=== PATIENT | female | born 1970 | race Hispanic/Latino ===

== ENCOUNTER 2018-12-06 16:07 | Emergency (ER) | payer OTHER | END 2018-12-06 16:49 | disposition home or self-care (01) | LOC: EDH 16:07 | DX: S63.591A Other specified sprain of right wrist, initial encounter (principal); Z98.51 Tubal ligation status; W18.39XA Other fall on same level, initial encounter; Y93.89 Activity, other specified; Y92.89 Other specified places as the place of occurrence of the external cause; Y99.8 Other external cause status | CPT/HCPCS: 29125; 73110 ==

== ENCOUNTER 2024-03-19 01:49 | Emergency (ER) | payer BC, OTHER ==
[~2024-03-19] VITALS: Ht 152.4 cm; Wt 76.2 kg
[2024-03-19 02:28] LABS: BASOPHILS # (AUTO) 0.01 K/uL (0.00-0.20); BASOPHILS % (AUTO) 0.2 % (0.0-5.0); EOSINOPHILS # (AUTO) 0.12 K/uL (0.00-0.70); LYMPHOCYTES # (AUTO) 2.1 K/uL (1.0-4.8); MEAN CORPUSCULAR HEMOGLOBIN 29.6 pg (27.0-33.0); MEAN CORPUSCULAR HGB CONC 34.1 g/dL (32.0-36.0); MEAN CORPUSCULAR VOLUME 86.7 fL (79-99); MONOCYTES # (AUTO) 0.4 K/uL (0.1-1.0); MONOCYTES % (AUTO) 6.4 % (3.0-13.0); NEUTROPHILS # (AUTO) 3.5 K/uL (1.8-7.7); NEUTROPHILS % (AUTO) 57.4 % (40.0-77.0); PLATELET COUNT (AUTO) 247 K/uL (130-400); RED CELL DISTRIBUTION WIDTH 12.1 % (11.0-15.5); WHITE BLOOD COUNT (AUTO) 6.1 K/uL (4.8-10.8)
[2024-03-19] MEDS: morPHINE 4 MG SYG IVP ONE (02:35)
[2024-03-19] MEDS: LACTATED RINGERS 1000ML 909 ML IV ONE (02:36)
[2024-03-19 02:37] LABS: CREATININE 0.9 mg/dL (0.5-1.0); POTASSIUM 3.5 mmol/L (3.5-5.1)
[2024-03-19 02:42] LABS: ALBUMIN 3.6 g/dL (3.5-5.0); BILIRUBIN,TOTAL 0.5 mg/dL (0.2-1.0); TOTAL PROTEIN, SERUM 7.7 g/dL (6.0-8.3)
[2024-03-19] MEDS ORDERED: IOHEXOL-350 75 ML VIAL IV ONE (03:16)
[2024-03-19] MEDS: CLINDAMYCIN 150 MG CAP PO ONE (04:46)
[2024-03-19] MEDS ORDERED: CLIN-141 PO (04:48)
[2024-03-19] MEDS ORDERED: HYDR-4060 PO (05:07)
[2024-03-19 05:09] VITALS: BP 139/85; PULSE 68; RESP 18; TEMP 97.8; O2SAT 97
== END 2024-03-19 05:33 | disposition home or self-care (01) ==
LOC: EDH 01:49
DX: K05.6 Periodontal disease, unspecified (principal); Z98.51 Tubal ligation status; Z98.890 Other specified postprocedural states
CPT/HCPCS: 99284; 96374; 70487; 96361; 80053; 85025; 36415; J7120; J2270; Q9967

== ENCOUNTER 2025-01-17 21:57 | Emergency (ER) | payer BC ==
[~2025-01-17] VITALS: Ht 154.9 cm; Wt 75.7 kg
[~2025-01-17 21:57] MED LIST: CLIN-141 PO; HYDR-4060 PO
--- NOTE | 2025-01-17 23:26 | HMCIMG ---
EXAMINATION: CT Maxillofacial Without IV contrast. CLINICAL HISTORY: Patient presents with jaw swelling and dental caries. COMPARISON: CT maxillofacial dated 03/19/2024. TECHNIQUE: Axial computed tomography images of the face without intravenous contrast. Sagittal and coronal reformatted images were generated. CONTRAST: None. FINDINGS: FACIAL BONES/ORBITS: No acute fracture or aggressive appearing osseous lesion. The mandible is intact. There is periapical osteolysis along the right mandibular molar tooth without bony cortical erosions. The orbits are normal. No retrobulbar hematoma or mass. The paranasal sinuses appear clear. SOFT TISSUES: Soft tissue thickening with subcutaneous fat stranding along the right hemimandible. No radiopaque foreign body or focal fluid collection. IMPRESSION: No acute facial bone fracture. Soft tissue thickening with subcutaneous fat stranding along the right hemimandible, reflecting inflammatory changes. Periapical osteolysis along the right mandibular molar tooth without bony cortical erosions. The present findings are more pronounced compared to the previous CT dated 03/19/2024. /[place]
--- NOTE | 2025-01-17 23:38 | ERN ---
ED Note History of Present Illness Stated Complaint: TOOTHACHE, FEVER Chief Complaint: Tooth Ache/Pain Time Seen by MD: 22:01 Dictation: This is a 54-year-old female who presented to the emergency room complaining of toothache and a low-grade fever which has been going on for awhile. Apparently she had dental caries in 2023 and she went to [place] and had the lower right molar tooth removed she comes in stating that she has pain in the right molars and jaw and chin. She took Tylenol at 4:00 p.m. before coming to the ER. No bleeding. Patient had also root canal treatment in the past and has had poor periodontal disease. She has been taking care of multiple sick family members and did not have the time for follow ups. Temperature 100 pulse 114 respirations 20 blood pressure 172/112 pulse oximetry 100% on room air Allergies: Coded Allergies: No Known Drug Allergies (Unverified Allergy, Unknown, 12/06/18) Home Meds Active Scripts Chlorhexidine Gluconate (Peridex Oral Rinse) 0.12 % Mwsh, 15 ML PO BID for 14 Days, #473 ML 0 Refills Swish and spit Prov:KARLO TAM MD 01/18/25 Prednisone (Prednisone) 20 Mg Tablet, 1 TAB PO AD for 6 Days, #14 TAB 0 Refills TAKE 1 TAB BY MOUTH THREE TIMES PER DAY X3 DAYS, THEN TAKE 1 TAB BY MOUTH TWICE A DAY X2 DAYS, THEN TAKE 1 TAB BY MOUTH ONCE A DAY X1 DAY. Prov:KARLO TAM MD 01/18/25 Clindamycin HCl (Clindamycin HCl) 300 Mg Capsule, 1 CAP PO QID for 10 Days, #40 CAP 0 Refills Prov:KARLO TAM MD 01/17/25 Hydrocodone/Acetaminophen (Hydrocodon-Acetaminophen 5-325) 5 Mg-325 Mg Tablet, 1 EACH PO q8 for pain for 3 Days, #9 TAB Prov:ROSLYN GOINS MD 03/19/24 Clindamycin HCl (Clindamycin HCl) 300 Mg Capsule, 150 MG PO TID for 7 Days, #21 CAP Prov:ROSLYN GOINS MD 03/19/24 Past Medical History Past Medical History: No Pertinent History, Diabetes-Type II Surgical History: Other, BTL Surgical History Other: HX OF TUBAL LIGATION Family History: Negative Social History: Negative History: Not Applicable RN Note Reviewed/Agreed w/PFSH: Yes Review of System Dictation Constitutional: Negative for fever,chills, and weight loss Eyes: Negative for injury, pain,redness, and discharge ENT: Negative for injury,pain or swelling positive for pain in the multiple areas of the teeth and gums, swelling of the j chin and jaw Cardiovascular: Negative for chest pain, palpitations, and edema Respiratory: Negative for shortness of breath, cough, and wheezing, Abdomen/GI: Negative for abdominal pain, nausea, vomiting, diarrhea, and constipation Back: Negative for injury and pain : Negative for injury, bleeding and discharge MS/Extremity: Negative for injury and deformity Skin: Negative for rash, and discoloration Neuro: denied weakness, numbness, tingling, and seizure Psych: Negative for suicide ideation, homicidal ideation, and hallucinations Initial Vital Sign VS Vital Signs Date Time Temp Pulse Resp B/P (MAP) Pulse Ox O2 Delivery O2 Flow Rate FiO2 01/17/25 21:59 100.0 114 20 172/112 100 Room Air 01/17/25 22:41 0 21 Physical Exam Dictation General: awake, alert, NAD overweight Head/Face: Normocephalic, atraumatic I did not appreciate any severe asymmetrical jaw swelling or chin swelling. Eyes: PERRL, EOMI, vision at baseline ENT: oral cavity clear, TMs clear, extremely poor dentition with multiple missing teeth dental caries and lower jaw right-sided molars have multiple cavities and severe gingivitis. She also has some tenderness in the left side upper jaw. I could not extrude any pus. Neck: Trachea midline, supple, no nuchal rigidity Cardiovascular: RRR, normal S1/S2, No MRGs, no JVD Respiratory: CTAB, no respiratory distress, No rales or wheezes Abdomen: Soft, non-tender, non-distended, normal bowel sounds, no guarding or rebound. Skin: Warm, dry, normal turgor, no rash MS/Extremity: Pulses equal, no cyanosis, neurovascular intact, FROM Neuro: COAx4, GCS 15, strength 5/5, CN 2-12 intact, normal cerebellar exam, norm al gait, Psych: Normal behavior, mood, and affect normal Extremities-trace edema without any palpable cords, Homans sign is negative Results (Laboratory/Radiology) Labs Reviewed?: Yes CT Scan Comment: REASON: dental caries jaw swelling ORDERING PHYSICIAN: KARLO TAM MD [facility]/O CONTRAST EXAMINATION: CT Maxillofacial Without IV contrast. CLINICAL HISTORY: Patient presents with jaw swelling and dental caries. COMPARISON: CT maxillofacial dated 03/19/2024. TECHNIQUE: Axial computed tomography images of the face without intravenous contrast. Sagittal and coronal reformatted images were generated. CONTRAST: None. FINDINGS: FACIAL BONES/ORBITS: No acute fracture or aggressive appearing osseous lesion. The mandible is intact. There is periapical osteolysis along the right mandibular molar tooth without bony cortical erosions. The orbits are normal. No retrobulbar hematoma or mass. The paranasal sinuses appear clear. SOFT TISSUES: Soft tissue thickening with subcutaneous fat stranding along the right hemimandible. No radiopaque foreign body or focal fluid collection. IMPRESSION: No acute facial bone fracture. Soft tissue thickening with subcutaneous fat stranding along the right hemimandible, reflecting inflammatory changes. Periapical osteolysis along the right mandibular molar tooth without bony cortical erosions. The present findings are more pronounced compared to the previous CT dated 03/19/2024. /[place] DICTATED BY: GRACIELA GRANT Jr., MD DATE: 01/18/2524 ELECTRONICALLY SIGNED BY: GRACIELA GRANT Jr., MD DATE: 01/18/2524 ED Course ED Course Orders Procedure Category Date Status Time Ct Maxillofacial W/O CT 01/17/25 Resulted Contrast 22:10 Ketorolac PHA 01/17/25 Complete Tromethamine 30mg/Ml 22:30 Zosyn 3.375gm+Ns 50ml PHA 01/18/25 Complete (Zosyn 3.375gm+Ns 00:00 Dexamethasone 4mg/Ml PHA 01/18/25 Complete 1ml Vial (Dexametha 00:00 Current Medications Medications (Trade) Dose Ordered Sig/Gumaro Route PRN Reason Start Time Stop Time Status Last Admin Dose Admin Dexamethasone Sodium Phosphate (dexaMETHasone 4MG/ML 1ML VIAL) 6 mg ONCE ONCE IVP 01/18/25 00:00 01/18/25 00:01 DC 01/18/25 00:56 Ketorolac Tromethamine (toRADol) 30 mg ONCE ONCE IM 01/17/25 22:30 01/17/25 22:31 DC 01/17/25 22:40 Piperacillin Sod/ Tazobactam Sod (Zosyn 3.375gm+NS 50ml) 3.375 gm ONCE ONCE IV 01/18/25 00:00 01/18/25 00:01 DC 01/18/25 00:56 Vital Signs Date Time Temp Pulse Resp B/P (MAP) Pulse Ox O2 Delivery O2 Flow Rate FiO2 01/18/25 01:21 99.1 97 18 138/88 97 Room Air* 0 21 01/17/25 22:41 100.0 101 20 166/95 98 Room Air* 0 21 01/17/25 21:59 100.0 114 20 172/112 100 Room Air We will perform advanced imaging and administer medications according to the patient's complaint. Once the results are available, will review and personally interpreted the labs to rule out any acute life-threatening emergency the trach require immediate intervention and treatment. I will then re-evaluate the patient after treatment and diagnostic exams have return to determine whether the patient requires any further testing, can safely be discharged home or need further admission to hospital for additional treatment and evaluation. CT maxillofacial was reviewed which showed multiple changes of dental caries and as attached in the results section. I have given her pain medication and empiric antibiotic therapy we will discharge her to follow up with her dentist and oral surgeon in [place] Medical Decision Making MDM Differential diagnosis: Dental caries, periodontitis, gingivitis, odontogenic abscess Rationale: Tests considered and ordered secondary to shared decision making include: Previous outside records reviewed: Old ER visits. Risk of complication and/or morbidity or mortality of patient management: None Medications-Per medication reconciliation Need for hospitalization: Patient does not meet criteria for hospitalization. Need for emergency major/minor surgery: No There are no social concerns with this patient. Prescription drug management Prescriptions will include symptomatic care Patient's prior external medical records from other ER visits were reviewed by me as indicated. Prior testing and results from previous visits were reviewed. Prior tests were taken into account with medical decision making and resource utilization, independent historian/historians were used to obtain complete medical history. I independently interpreted the test that were performed, results were reviewed by me and considered findings on radiology if ordered. Medical management and examination interpretation discussions were had by me with other qualified healthcare professionals as indicated for the patient's care. Problem List Problem List: (1) Dental caries (2) Periodontitis (3) Odontogenic infection of jaw DX & DISP Disposition: Discharge Departure Impression: Primary Impression: Periodontitis Additional Impressions: Dental caries, Odontogenic infection of jaw Condition: Stable Scripts Chlorhexidine Gluconate (Peridex Oral Rinse) 0.12 % Mwsh 15 ML PO BID for 14 Days, #473 ML 0 Refills Swish and spit Prov: KARLO TMA MD 01/18/25 Prednisone (Prednisone) 20 Mg Tablet 1 TAB PO AD for 6 Days, #14 TAB 0 Refills TAKE 1 TAB BY MOUTH THREE TIMES PER DAY X3 DAYS, THEN TAKE 1 TAB BY MOUTH TWICE A DAY X2 DAYS, THEN TAKE 1 TAB BY MOUTH ONCE A DAY X1 DAY. Prov: KARLO TAM MD 01/18/25 Clindamycin HCl (Clindamycin HCl) 300 Mg Capsule 1 CAP PO QID for 10 Days, #40 CAP 0 Refills Prov: KARLO TAM MD 01/17/25 Additional Instructions: Patient and the caregiver have been informed of all the diagnostic tests and the imaging conducted during the today's visit to the emergency room and has verbalized understanding of the results I have personally reviewed and interpreted all diagnostic exams performed here in the ER today as well as the vital signs documented by the nursing staff. The patient is now being dis charged to home and should follow up with the primary care physician or the specialist as directed by the ER staff. Follow-up with primary care provider in 1 to 2 days. Take medications as directed here in the emergency room. Okay to continue home medications unless otherwise discussed during your visit in the emergency room today. Return to your nearest emergency room if symptoms worsen or if there is no improvement. Call 911 if you need immediate assistance. Take Tylenol or Motrin [id number] as needed and if no contraindications are present. Increase oral hydration. A wound culture or urine culture was ordered here in the emergency room department please follow-up with primary care provider and advise them to get repeat ports from our facility. If you had any Malcolm wrap/splints that were applied here, please do not remove them until you see your primary care or specialty. Patient has a dentist and oral surgeon in [place] and she is scheduled to have tooth extraction once she completes antibiotic Referrals: JORGE A STOUT JR., MD (PCP) KARLO TAM MD Jan 17, 2025 23:38
[2025-01-17] MEDS ORDERED: CLIN-141 PO (23:51)
[2025-01-18] MEDS ORDERED: PERID15L PO (00:31)
[2025-01-18] MEDS ORDERED: PRED20TA3 PO (00:31)
[2025-01-18] MEDS: ZOSYN 3.375GM +NS 50ML IV ONE (00:56)
[2025-01-18 01:21] VITALS: BP 138/88; PULSE 97; RESP 18; TEMP 99.1; O2SAT 97
== END 2025-01-18 01:34 | disposition home or self-care (01) ==
LOC: EDH 21:57
DX: K02.9 Dental caries, unspecified (principal); K05.30 Chronic periodontitis, unspecified; M27.2 Inflammatory conditions of jaws; Z98.51 Tubal ligation status
CPT/HCPCS: 99284; 70486; 96372; 96365; 96375; J1885; J1100; J2543; 99285